=== PATIENT | female | born 1980 | race African-American/Black ===

== ENCOUNTER 2020-04-01 05:50 | Inpatient (IN) | payer OTHER ==
[2020-03-31 12:25] LABS: BASOPHILS % (AUTO) 2.9 % (0.0-2.0); EOSINOPHILS % (AUTO) 1.6 % (0.0-3.0); HEMATOCRIT 38.5 % (37.0-47.0); HEMOGLOBIN 13.2 G/DL (12.0-16.0); LYMPHOCYTES % (AUTO) 13.7 % (20.0-45.0); MEAN CORPUSCULAR VOLUME 89 FL (80-99); MONOCYTES % (AUTO) 5.4 % (1.0-10.0); NEUTROPHILS % (AUTO) 76.4 % (45.0-75.0); PLATELET COUNT 292 K/UL (150-450); RED BLOOD COUNT 4.33 M/UL (4.20-5.40); RED CELL DISTRIBUTION WIDTH 10.6 % (11.6-14.8); WHITE BLOOD COUNT 13.7 K/UL (4.8-10.8)
[2020-03-31 12:35] LABS: INR 1.3 (0.9-1.1)
[2020-03-31 12:37] LABS: ANION GAP 9 mmol/L (5-15); BLOOD UREA NITROGEN 8 mg/dL (7-18); CALCIUM 9.7 MG/DL (8.5-10.1); CARBON DIOXIDE 30 MMOL/L (21-32); CHLORIDE 99 MMOL/L (98-107); SODIUM 138 MMOL/L (136-145)
[2020-04-01] VITALS (12 sets, daily range): BP systolic 92–124; BP diastolic 57–91
[~2020-04-01] VITALS: Ht 162.6 cm; Wt 66.0 kg
[~2020-04-01 05:50] MED LIST: NORCO 5-325 TA1 EAC1 ORAL
[2020-04-01] MEDS ORDERED: ceFAZolin sod 2 GM in NS 55 ML IVPB ONE (07:00)
[2020-04-01] MEDS ORDERED: Midazolam 2mg/2ml Inj ONE (07:07)
[2020-04-01] MEDS ORDERED: fentaNYL 100 mcg/2 mL IV ONE (07:07)
[2020-04-01] MEDS ORDERED: Lidocaine 1% MPF 10mg/ml 5ml ONE (07:08)
[2020-04-01] MEDS ORDERED: cefOXitin 1gm Inj ONE (07:14)
[2020-04-01] MEDS ORDERED: Succinylcholine 20mg/ml 10ml vial ONE (07:15)
[2020-04-01] MEDS ORDERED: Duramorph PF 5mg/10ml amp ONE (07:15)
[2020-04-01] MEDS ORDERED: Rocuronium Bromide 50mg/5ml Inj IV ONE (07:15)
[2020-04-01] MEDS ORDERED: Sterile Water Irrig 1000ml IRRIG ONE (07:20)
[2020-04-01] MEDS ORDERED: LR 1000ml ONE (07:20)
[2020-04-01] MEDS ORDERED: Bupivacaine 0.5% Inj 30 ml vial INJ ONE (07:21)
[2020-04-01] MEDS ORDERED: Ropivacaine 5mg/ml Vial 20ml INJ ONE (07:21)
--- NOTE | 2020-04-01 07:31 | Pre-Procedure Note/Attestation ---
Pre-Procedure Note/Attestation Complete Prior to Procedure Planned Procedure: not applicable Procedure Narrative: myomectomy, possibly hysterectomy, exploratory laparotomy Indications for Procedure Pre-Operative Diagnosis: degenerating fibroid, lower abdominal pain Attestation I attest that I discussed the nature of the procedure; its benefits; risks and complications; and alternatives (and the risks and benefits of such alternatives ), prior to the procedure, with the patient (or the patient's legal footwear sales representative). I attest that, if there was a reasonable possibility of needing a blood transfusion, the patient (or the patient's legal footwear sales representative) was given the [facility] standardized written summary, pursuant to the Alden Fabens Blood Safety Act ([place] Health and Safety Code # 1645, as amended). I attest that I re-evaluated the patient just prior to the surgery and that there has been no change in the patient's H&P, except as documented below: Sheree Zuleta MD Apr 01, 2020 07:31
[2020-04-01] MEDS ORDERED: NS 55ml IV ONE (07:40)
[2020-04-01] MEDS ORDERED: NS Irrig 1000ml IRRIG ONE ×2 (07:40→09:50)
[2020-04-01] MEDS ORDERED: HYDROcodone/Acetamin 10/325 tab ORAL PRN (07:45)
[2020-04-01] MEDS ORDERED: Milk of Magnesia 30ml Ud ORAL PRN (07:45)
[2020-04-01] MEDS ORDERED: Sennosides 8.6mg tab ORAL PRN (07:45)
[2020-04-01] MEDS ORDERED: DiphenhydrAMINE 50mg/ml Inj IVP PRN ×2 (07:45→08:45)
[2020-04-01] MEDS ORDERED: HYDROcodone/Acetamin 5/325 tab ORAL PRN (07:45)
--- NOTE | 2020-04-01 08:35 | Anethesia Preoperative Eval ---
Anesthesia Pre-op PMH/ROS General Date of Evaluation: Apr 01, 2020 Time of Evaluation: 07:25 Anesthesiologist: Elida ASA Score: ASA 2 Mallampati Score Class I : Soft palate, uvula, fauces, pillars visible Class II: Soft palate, uvula, fauces visible Class III: Soft palate, base of uvula visible Class IV: Only hard plate visible Mallampati Classification: Class II Surgeon: Merlyn Diagnosis: Symptomatic uterine fibroids Surgical Procedure: Myomectomy Anesthesia History: none Family History: no anesthesia problems Allergies: Coded Allergies: No Known Allergies (Unverified , 03/31/20) Medications: see eMAR Patient NPO?: Yes Past Medical History Cardiovascular: Denies: HTN, CAD, [place], valve dz, arrhythmia, other Pulmonary: Denies: asthma, COPD, ROSA ISELA, other Gastrointestinal/Genitourinary: Reports: GERD - mild; Denies: CRI, ESRD, other Neurologic/Psychiatric: Reports: depression/anxiety, other - chronic pain; Denies: dementia, CVA, TIA Endocrine: Denies: DM, hypothyroidism, steroids, other HEENT: Denies: cataract (L), cataract (R), glaucoma, HUGHES (L), HUGHES (R), other Hematology/Immune: Reports: anemia - mild; Denies: DVT, bleeding disorder, other Musculoskeletal/Integumentary: Denies: OA, RA, DJD, DDD, edema, other PMH Narrative: as above PSxH Narrative: Excisional Bx breast Anesthesia Pre-op Phys. Exam Physician Exam Last Vital Signs Date Time Temp Pulse Resp B/P (MAP) Pulse Ox O2 Delivery O2 Flow Rate FiO2 04/01/20 06:45 Room Air 04/01/20 06:40 98.7 89 18 124/91 (102) 99 Constitutional: NAD Neurologic: CN 2-12 intact Cardiovascular: RRR, no M/R/G Respiratory: CTA Gastrointestinal: S/NT/ND Airway Exam Mallampati Score: Class II MO: full Neck: flexible ROM: full Teeth: intact Dentures: no upper, no lower Anesthesia Pre-op A/P Labs Hematology Test 03/31/20 12:19 White Blood Count 13.7 K/UL (4.8-10.8) H Red Blood Count 4.33 M/UL (4.20-5.40) Hemoglobin 13.2 G/DL (12.0-16.0) Hematocrit 38.5 % (37.0-47.0) Mean Corpuscular Volume 89 FL (80-99) Mean Corpuscular Hemoglobin 30.6 PG (27.0-31.0) Mean Corpuscular Hemoglobin Concent 34.4 G/DL (32.0-36.0) Red Cell Distribution Width 10.6 % (11.6-14.8) L Platelet Count 292 K/UL (150-450) Mean Platelet Volume 7.8 FL (6.5-10.1) Neutrophils (%) (Auto) 76.4 % (45.0-75.0) H Lymphocytes (%) (Auto) 13.7 % (20.0-45.0) L Monocytes (%) (Auto) 5.4 % (1.0-10.0) Eosinophils (%) (Auto) 1.6 % (0.0-3.0) Basophils (%) (Auto) 2.9 % (0.0-2.0) H Coagulation Test 03/31/20 12:19 Prothrombin Time 13.6 SEC (9.30-11.50) H Prothromb Time International Ratio 1.3 (0.9-1.1) H Activated Partial Thromboplast Time 28 SEC (23-33) Chemistry Test 03/31/20 12:19 04/01/20 06:20 Sodium Level 138 MMOL/L (136-145) Potassium Level 4.0 MMOL/L (3.5-5.1) Chloride Level 99 MMOL/L (98-107) Carbon Dioxide Level 30 MMOL/L (21-32) Anion Gap 9 mmol/L (5-15) Blood Urea Nitrogen 8 mg/dL (7-18) Creatinine 1.0 MG/DL (0.55-1.30) Estimat Glomerular Filtration Rate > 60 mL/min (>60) Glucose Level 109 MG/DL (74-106) H Calcium Level 9.7 MG/DL (8.5-10.1) Human Chorionic Gonadotropin, Qual Negative (NEGATIVE) Serum Test Test 04/01/20 06:20 Human Chorionic Gonadotropin, Qual Negative (NEGATIVE) Studies Pre-op Studies: EKG - NSR Risk Assessment & Plan Assessment: ASA 2 Plan: GA with ETT intrathecal MS for postop pain control Status Change Before Surgery: No Pre-Antibiotics Drug: Cefoxitin 1gr Given Within 1 Hr of Incision: Yes Time Given: 08:15 Viraj Marrero MD Apr 01, 2020 08:35
[2020-04-01] MEDS ORDERED: LR 1000ml 1,000 ML IVLG SCH (08:37)
[2020-04-01] MEDS ORDERED: Glycopyrrolate 0.2mg/ml 1ml Vial ONE (08:42)
[2020-04-01] MEDS ORDERED: Meperidine 25mg/0.5ml Inj (FOR RIGORS ONLY) IV PRN (08:45)
[2020-04-01] MEDS ORDERED: Acetaminophen (Non formulary) 100 ML IV ONE (08:45)
[2020-04-01] MEDS ORDERED: Midazolam 2mg/2ml Inj IVP PRN (08:45)
[2020-04-01] MEDS ORDERED: Metoclopramide 10mg/2ml Inj IVP PRN (08:45)
--- NOTE | 2020-04-01 08:45 | Pre-op HX & Phy Repo 2 SIG ---
DATE OF ADMISSION: 04/01/2020 REASON FOR ADMISSION: admitted for myomectomy. HISTORY OF PRESENT ILLNESS: The patient has been followed by me on and off since 2006. In 2018, she was diagnosed with a small intramural fibroid approximately 1.5 cm in diameter at that point. She was seen iin September 2019, at which point a 6 cm fibroid was observed and another smaller fibroid. At that point, surgery was discussed; however, the patient was not symptomatic and only had mild urinary retention and she chose to be observed expectantly. Next, she was seen in December 2019 with an 8 cm anterior fibroid and worsening retention. A decision was made that she will see an urologist for urometrics and then we will plan surgery at some point in the future. In March 2020, namely March 29, 2020, Luz Maria had constipation and lower abdominal pain and she went to emergency room where the fibroid was observed to be 8 cm and with some hypoechoic, heterogeneous areas and diagnosis was made of degenerating fibroid versus abscess. However, the patient had no fever or chills and no nausea or vomiting. She only had constipation and pain. I saw her on 03/30/2020 for and exam. The exam was consistent with a degenerating fibroid that was tender on exam. A decision was made to proceed with expedited surgery. The patient was extensively counseled and we discussed the possibility that a hysterectomy will be necessary. I think the patient does desire future fertility and I will try to do a myomectomy. We also discussed that secondary to rapid growth of fibroid, sarcoma is not ruled out. So, the decision was made with the patient's consent to proceed with exploratory laparotomy, myomectomy, possible hysterectomy. PAST MEDICAL HISTORY: None. PAST SURGICAL HISTORY: None. SOCIAL HISTORY: The patient drinks socially. She does not smoke and she lives with sister. REVIEW OF SYSTEMS: Significant for pain as well as constipation for the last 3 to 4 days and no abdominal pain. She denies heavy bleeding, nausea, vomiting, fever, or chills. PHYSICAL EXAMINATION: GENERAL: female, appearing stated age, in no acute distress. VITAL SIGNS: Weight 144. Blood pressure 120/80. Height 6 feet 5-1/2 inches. Heart rate 72. Afebrile. Temperature 98.7. Respiratory rate 18. HEAD AND NECK: Pupils are equal and reactive to light. LUNGS: Clear to auscultation bilaterally. BREASTS: No dominant masses. No axillary adenopathy. CARDIAC: Regular rate and rhythm. ABDOMEN: Soft, nondistended. Tender, right more than the left, also midline abdominopelvic mass approximately 6 cm above symphysis, tender to palpation. No rebound. No guarding. Normal bowel sounds. EXTREMITIES: No cords. No cyanosis. No edema. PELVIC: Bartholin, urethral, Grimsley's within normal limits. Bimanual exam significant for 14 week +, fibroid uterus, tender to palpation. No cervical motion tenderness. Cervix within normal limits. RECTAL/VAGINAL: Within normal limits. ASSESSMENT: A 39-year-old with a symptomatic fibroid uterus, one fibroid growing rapidly to approximately 8 to 9 cm in size . Other fibroids were seen as well, the pain is most likely secondary to degenerating fibroid. PLAN: Ex-lap, myomectomy, possible hysterectomy. Sheree Zuleta M.D. DR: COSME JOB#: [id number] CC: FITO
--- NOTE | 2020-04-01 10:59 | Immediate Post-Op Evaluation ---
Immediate Post-Op Evalulation Immediate Post-Op Evalulation Procedure: Open abdominal myomectomy Date of Evaluation: Apr 01, 2020 Time of Evaluation: 10:57 IV Fluids: 1600 Blood Products: none Estimated Blood Loss: 250 Urinary Output: 150 Blood Pressure Systolic: 118 Blood Pressure Diastolic: 67 Pulse Rate: 96 Respiratory Rate: 20 O2 Sat by Pulse Oximetry: 99 Temperature (Fahrenheit): 98.8 Pain Score (1-10): 1 Nausea: No Vomiting: No Complications none Patient Status: reacts, patent, extubated, none Hydration Status: adequate Viraj Marrero MD Apr 01, 2020 10:58
--- NOTE | 2020-04-01 11:14 | Brief Operative Note ---
Immediate Post Operative Note Operative Note Pre-op Diagnosis: degenerating fibroid, lower abdominal pain Procedure: exploratory laparotomy extensive myomectomy Post-op Diagnosis: degenerating fibroid Surgeon: ingrid Environmental Coordinator: brianne Anesthesiologist: nilam Anesthesia: general Specimen: yes Complications: none Condition: stable Fluids: 1.6l crystallloid Estimated Blood Loss: volume - 300cc Drains: none Implant(s) used?: No Sheree Zuleta MD Apr 01, 2020 11:14
--- NOTE | 2020-04-01 11:55 | NUR ---
NURSE NOTES: pt arrived to the floor via hospital bed , s/p surgery pt alert awake . Received report from Laurie mondragon. Pt a/o4, breaths regular unlabored on 3L NC, no s/s of distress , pt denies any pain , abd dressing clean intact , pt has a Bragg catheter draining clear yellow urine . PT has IVF on the LT hand 20 intact , patent asymptomatic . Pt has Bilateral SCDs on , belongings verified and signed for . oriented pt to the room , provided remote , call light with in reach , side rails up X2, pt encouraged to call for for help , will continue to Monitor
[2020-04-01] MEDS ORDERED: HYDROmorphone 1mg/ml Carpuject IVP PRN (12:32)
[2020-04-01] MEDS: Docusate 100mg cap ORAL SCH (17:25)
[2020-04-01] MEDS: ceFAZolin sod 1 GM in D5W 55 ML IV SCH (17:25)
[2020-04-01] MEDS: Ketorolac 30mg Inj IV SCH (17:25)
--- NOTE | 2020-04-01 19:30 | NUR ---
NURSE NOTES: Received patient and report from LASHELL Preston. Patient was alert and oriented x4 with no s/s of acute distress. No c/o pain. IV site clean dry and intact and running fluids as ordered. Surgical dressing clean dry and intact. Bragg noted and draining. Plan of care discussed.
[2020-04-02] VITALS: BP 108/67
[2020-04-02] MEDS: Ketorolac 30mg Inj IV SCH ×4 (00:12→21:45)
[2020-04-02] MEDS: ceFAZolin sod 1 GM in D5W 55 ML IV SCH (00:12)
--- NOTE | 2020-04-02 01:15 | Operative Note - Dictated ---
DATE OF OPERATION: 04/01/2020 PREOPERATIVE DIAGNOSIS: Degenerating fibroid, lower abdominal pain. POSTOPERATIVE DIAGNOSIS: Degenerating fibroid, lower abdominal pain. PROCEDURE: Exploratory laparotomy, myomectomy. SURGEON: Sheree Zuleta MD. INSTALLMENT LOAN COLLECTOR: Suzie Rojo MD. ANESTHESIOLOGIST: Viraj Marrero MD. ESTIMATED BLOOD LOSS: 300 mL. FLUIDS: 1.6L NS ANESTHESIA: General endotracheal. PROCEDURE IN DETAIL: After ensuring informed consent, the patient was taken to the operating room where general anesthesia was induced. The patient was sterilely prepped and draped. Bragg was placed. I was planning to place a uterine manipulator, however, because of involuntary diarrhea, a decision was made not to proceed with instrumenting the uterus. Vaginal prep was done and the patient was placed in a dorsal supine position. A low transverse incision made with a knife and carried down to the level of the fascia with the Bovie. Fascia was nicked in the midline and incision was extended laterally. Fascia was grasped with Jillian clamps and sharply dissected off of the underlying rectus muscles. Rectus muscles were parted in the midline. Peritoneum was identified and entered sharply. A large anterior fibroid was encountered. Both ovaries were normal. Left fallopian tube was dilated and c/w small-moderated hydrosalpinx. About 5 to 6units of dilute Pitressin were injected into the uterus with good blanching observed. Serosa was incised with the Bovie. Fibroid was grasped with Any clamps and both sharply and bluntly dissected off of the underlying uterine muscle. Because the fibroid was large, it was taken down sharply with a knife. There is evidence that degeneration occurred, the fibroid was very mushy and had a distinct odor of necrosis. As the fibroid was completely removed, it was noted that there was another right lateral fundal fibroid approximately 3 cm in diameter. It was removed through the same intrauterine incision. Then, uterus was closed with multiple layers with 0 Vicryl using a CTX needle because of the defect left by the large, approximately 10 cm fibroid. Once excellent hemostasis was assured, the uterus was completely closed. Pelvic cavity was irrigated. Peritoneum was closed with 2-0 Vicryl. Fascia was closed with 0 Vicryl. Subcutaneous tissue was closed with 3-0 plain and skin was closed with 3-0 Monocryl, and Steri-Strips were placed over the skin. At the end of the procedure, all instrument and lap counts were correct x3. The patient was taken to the recovery area, extubated, and in stable condition. Sheree Zuleta M.D. DR: Nicole JOB#: [id number] CC: FITO
[2020-04-02 04:00] VITALS: BP 94/63
[2020-04-02 06:42] LABS: EOSINOPHILS % (AUTO) 6.1 % (0.0-3.0); LYMPHOCYTES % (AUTO) 29.2 % (20.0-45.0); MEAN CORPUSCULAR VOLUME 90 FL (80-99); MONOCYTES % (AUTO) 7.1 % (1.0-10.0); NEUTROPHILS % (AUTO) 55.6 % (45.0-75.0); PLATELET COUNT 276 K/UL (150-450); RED BLOOD COUNT 3.57 M/UL (4.20-5.40); RED CELL DISTRIBUTION WIDTH 10.5 % (11.6-14.8); WHITE BLOOD COUNT 7.9 K/UL (4.8-10.8)
[2020-04-02 06:55] LABS: ANION GAP 7 mmol/L (5-15); BLOOD UREA NITROGEN 10 mg/dL (7-18); CALCIUM 9.1 MG/DL (8.5-10.1); CARBON DIOXIDE 29 MMOL/L (21-32); CHLORIDE 102 MMOL/L (98-107); SODIUM 138 MMOL/L (136-145)
--- NOTE | 2020-04-02 07:07 | NUR ---
NURSE HAND-OFF: Important Events on Shift: pain management Patient Status: stable Diet: regular Pending Orders: NA Pending Results/Labs:NA Pending MD notification:NA Latest Vital Signs: Temperature 98.3 , Pulse 74 , B/P 94 /63 , Respiratory Rate 16 , O2 SAT 98 , Room Air, O2 Flow Rate 3.0 . Vital Sign Comment: stable throughout shift Latest Humphreys Fall Score: 35 Fall Risk: Medium Risk Safety Measures: Call light , Bed Alarm Zone 1, Side Rails Side Rails x2, Bed position Low and Locked. Fall Precautions: Yellow Socks Patient Fall Education Report given to LASHELL Preston.
--- NOTE | 2020-04-02 07:34 | NUR ---
NURSE NOTES: Received report from Magi /Jonathan RN, rounds made pt sleeping with no s/s of respiratory distress , breaths regular unlabored on RA, bed in low locked position, side rails upX2 , call light with in reach , will continue with plan of care
[2020-04-02 08:00] VITALS: BP 98/62
[2020-04-02] MEDS: Docusate 100mg cap ORAL SCH ×2 (08:37→18:55)
--- NOTE | 2020-04-02 08:49 | NUR ---
CASE MANAGEMENT: INITIAL REVIEW 39YR OLD FEMALE FROM HOME HERE FOR PLANNED SURGERY CC:Lower abdominal pain SI:Degenerating fibroid 98.7 89 18 124/91 99% ON RA LABS DONE PRIOR TO ADMISSION AND SURGERY: 03/31/20 LAB WBC 13.7 PT/INR 13.6/1.3 IS:IN SURG NOW FOR 04/01/20 OPEN myomectomy, possibly hysterectomy, exploratory laparotomy IVF NS BOLUS X2 IV CEFAZOLIN X2 BAGS \: 3E MED SURG UNIT DCP: HOME WHEN STABLE PLAN: NPO ADVANCE DIET TOLERATED ENCOURAGE INCENTIVE SPIROMETER NEURO CHECKS PT EVAL AND THERAPY RECOMMENDATION DVT PROPHYLAXIS PAIN MANAGEMENT CASE MANAGEMENT: REVIEW 04/02/20 SI:S/P OPEN MYOMECTOMY PMHX: Degenerating fibroid 98.1 93 18 98/62 98% ON RA NO LABS THIS AM IS:IV CEFAZOLIN X2 BAGS IV TORADOL Q6HR/PRN COLASE PO BID \: 3E MED SURG UNIT DCP: HOME WHEN STABLE PLAN: ADVANCE DIET TOLERATED CONT ENCOURAGE INCENTIVE SPIROMETER NEURO CHECKS F/U PT EVAL AND THERAPY RECOMMENDATION DVT PROPHYLAXIS ENCOURAGE AMBULATION COMPLETE IV ABX
--- NOTE | 2020-04-02 09:17 | NUR ---
*-* INSURANCE *-* UPDATED CLINICALS AND REVIEWS HAVE BEEN FAXED TO: # [phone] FAX# [phone] REVIEWS/CLINICALS
--- NOTE | 2020-04-02 10:04 | General Surgery Progress Note ---
General Surgery-Progress Note Subjective Procedure Performed exploratory laparotomy extensive myomectomy Symptoms: worse, pain same, tolerating diet, passing flatus Objective Last 24 Hour Vital Signs Date Time Temp Pulse Resp B/P (MAP) Pulse Ox O2 Delivery O2 Flow Rate FiO2 04/02/20 09:00 Room Air 04/02/20 08:00 98.1 93 18 98/62 (74) 98 04/02/20 04:00 98.3 74 16 94/63 (73) 98 04/02/20 00:00 98.3 82 18 108/67 (81) 99 04/01/20 21:00 Room Air 04/01/20 21:00 98.5 82 17 92/57 (69) 99 04/01/20 16:00 97.8 72 18 112/63 (79) 100 04/01/20 12:25 98.2 83 16 107/69 (82) 99 04/01/20 12:20 Nasal Cannula 3.0 04/01/20 11:55 98.2 80 18 106/67 (80) 99 04/01/20 11:50 98.9 77 16 108/59 100 Nasal Cannula 3 04/01/20 11:35 80 22 116/68 100 Nasal Cannula 3 04/01/20 11:22 79 20 118/70 100 Nasal Cannula 3 04/01/20 11:12 82 16 117/65 100 Simple Mask 6 04/01/20 11:02 85 12 124/71 100 Simple Mask 6 04/01/20 10:58 96 20 99 04/01/20 10:57 94 14 120/69 100 Simple Mask 6 04/01/20 10:52 99.1 100 25 118/71 100 Simple Mask 6 I&O Intake and Output 04/01/20 04/02/20 19:00 07:00 Intake Total 2054 ml 500 ml Output Total 980 ml 680 ml Balance 1074 ml -180 ml Intake Oral 354 ml 500 ml IV Total 1700 ml Output Urine Total 730 ml 680 ml Estimated Blood Loss 250 ml Dressing: dry Wound: clean, dry, intact Drains: none Cardiovascular: RSR Respiratory: clear Abdomen: soft, distended - appropriate slight distension and tenderness, present bowel sounds Laboratory Tests Test 04/02/20 04:50 White Blood Count 7.9 K/UL (4.8-10.8) Red Blood Count 3.57 M/UL (4.20-5.40) L Hemoglobin 11.0 G/DL (12.0-16.0) L Hematocrit 32.0 % (37.0-47.0) L Mean Corpuscular Volume 90 FL (80-99) Mean Corpuscular Hemoglobin 30.7 PG (27.0-31.0) Mean Corpuscular Hemoglobin Concent 34.2 G/DL (32.0-36.0) Red Cell Distribution Width 10.5 % (11.6-14.8) L Platelet Count 276 K/UL (150-450) Mean Platelet Volume 6.5 FL (6.5-10.1) Neutrophils (%) (Auto) 55.6 % (45.0-75.0) Lymphocytes (%) (Auto) 29.2 % (20.0-45.0) Monocytes (%) (Auto) 7.1 % (1.0-10.0) Eosinophils (%) (Auto) 6.1 % (0.0-3.0) H Basophils (%) (Auto) 2.0 % (0.0-2.0) Sodium Level 138 MMOL/L (136-145) Potassium Level 4.0 MMOL/L (3.5-5.1) Chloride Level 102 MMOL/L (98-107) Carbon Dioxide Level 29 MMOL/L (21-32) Anion Gap 7 mmol/L (5-15) Blood Urea Nitrogen 10 mg/dL (7-18) Creatinine 1.0 MG/DL (0.55-1.30) Estimat Glomerular Filtration Rate > 60 mL/min (>60) Glucose Level 99 MG/DL (74-106) Calcium Level 9.1 MG/DL (8.5-10.1) Assessment Post-op Diagnosis degenerating fibroid doing well Additional Comments ambulate/ observe d/c in am tomorrow Sheree Zuleta MD Apr 02, 2020 10:04
[2020-04-02] MEDS ORDERED: 1/2NS w/KCl 20mEq 1000ml 1,000 ML IV SCH (11:00)
[2020-04-02 12:00] VITALS: BP 97/64
--- NOTE | 2020-04-02 13:49 | 48 Hour Post Anesthesia Eval ---
Post Anesthesia Evaluation Procedure: Open abdominal myomectomy Date of Evaluation: Apr 02, 2020 Time of Evaluation: 13:48 Blood Pressure Systolic: 104 0: 56 Pulse Rate: 72 Respiratory Rate: 20 Temperature (Fahrenheit): 97.6 O2 Sat by Pulse Oximetry: 98 Airway: patent Nausea: No Vomiting: No Pain Intensity: 2 Hydration Status: adequate Cardiopulmonary Status: stable Mental Status/LOC: patient returned to baseline Follow-up Care/Observations: n/a Post-Anesthesia Complications: none Follow-up care needed: N/A Viraj Marrero MD Apr 02, 2020 13:49
[2020-04-02 16:00] VITALS: BP 118/74
[2020-04-02] MEDS ORDERED: BACTRIM DS TAB1 EAC1 ORAL (17:54)
--- NOTE | 2020-04-02 19:18 | NUR ---
NURSE NOTES: Received report from anh LOBO. Rounding is done. Patient is a/o x4, c/o pain 03/01 and just given medication by Morning nurse. Will continue to monitor. Patient is hard stick for IV, and already 2 nurses tried,but failed. Breathing is even and unlabored. No any distress noted at this time. Bed is on alarm, locked, and lowest position. Call light within reach. Will continue to monitor.
--- NOTE | 2020-04-02 19:29 | NUR ---
NURSE HAND-OFF: Important Events on Shift: IV pain Meds not given due to lack of i.v access , endorsed to night auditor nurse to give pain Meds when i.v is established Patient Status: stable Diet: Regular Pending Orders: Pending Results/Labs: Pending MD notification: Latest Vital Signs: Temperature 97.9 , Pulse 73 , B/P 118 /74 , Respiratory Rate 16 , O2 SAT 100 , Room Air, O2 Flow Rate 3.0 . Vital Sign Comment: Latest Humphreys Fall Score: 35 Fall Risk: Medium Risk Safety Measures: Call light , Bed Alarm Zone 1, Side Rails Side Rails x2, Bed position Low and Locked. Fall Precautions: Yellow Socks Patient Fall Education Report given to LILY LOBO.
[2020-04-02 20:00] VITALS: BP 114/74
[2020-04-03] VITALS: BP 108/73
[2020-04-03] MEDS: Ketorolac 30mg Inj IV SCH ×2 (00:57→06:04)
[2020-04-03 04:00] VITALS: BP 124/75
--- NOTE | 2020-04-03 07:16 | NUR ---
NURSE HAND-OFF: Important Events on Shift:[pain control] Patient Status: [stable] Diet: [regular] Pending Orders: [none] Pending Results/Labs:[none] Pending MD notification:[none] Latest Vital Signs: Temperature 98.1 , Pulse 78 , B/P 124 /75 , Respiratory Rate 17 , O2 SAT 98 , Room Air, O2 Flow Rate 3.0 . Vital Sign Comment: [stable] Latest Humphreys Fall Score: 35 Fall Risk: Medium Risk Safety Measures: Call light , Bed Alarm Zone 1, Side Rails Side Rails x2, Bed position Low and Locked. Fall Precautions: Yellow Socks Patient Fall Education Report given to [MAKAYLA RN].
--- NOTE | 2020-04-03 07:23 | NUR ---
NURSE NOTES: Received pt from LASHELL Marie. pt was sleeping, no acute distress, call light w/in reach.
[2020-04-03 08:00] VITALS: BP 108/69
[2020-04-03] MEDS: Docusate 100mg cap ORAL SCH (08:41)
--- NOTE | 2020-04-03 10:06 | Discharge Instructions ---
Discharge Instructions Discharge Instructions Diet: regular Resume Normal Activity?: Yes Activity: light activity, okay to shower, other - pelvic rest and only showers and no lifting more then 10lbs For Congestive Heart Failure Reminder Report to your physician any weight gain of 5 pounds or more in one week. Sheree Zuleta MD Apr 03, 2020 10:06
--- NOTE | 2020-04-03 10:10 | General Surgery Progress Note ---
General Surgery-Progress Note Subjective Procedure Performed exploratory laparotomy extensive myomectomy Symptoms: improved, tolerating diet, voiding well, passing flatus Objective Last 24 Hour Vital Signs Date Time Temp Pulse Resp B/P (MAP) Pulse Ox O2 Delivery O2 Flow Rate FiO2 04/03/20 08:18 Room Air 04/03/20 08:00 97.9 86 17 108/69 (82) 99 04/03/20 04:00 98.1 78 17 124/75 (91) 98 04/03/20 00:00 98.2 80 18 108/73 (85) 99 04/02/20 21:00 Room Air 04/02/20 20:00 99.6 98 18 114/74 (87) 97 04/02/20 16:00 97.9 73 16 118/74 (89) 100 04/02/20 13:49 72 20 98 04/02/20 12:00 98.0 87 16 97/64 (75) 98 I&O Intake and Output 04/02/20 04/03/20 19:00 07:00 Intake Total 2100 ml 940 ml Output Total 1850 ml 1200 ml Balance 250 ml -260 ml Intake Oral 2100 ml 940 ml Output Urine Total 1850 ml 1200 ml # Voids 2 3 Dressing: dry Wound: clean, dry, intact Drains: none Cardiovascular: RSR Respiratory: clear Abdomen: soft, distended, present bowel sounds Extremities: no edema Assessment Post-op Diagnosis degenerating fibroid doing well Plan Additional Comments d/c home follow up on sunday meds: ibuprofen and norco Sheree Zuleta MD Apr 03, 2020 10:10
--- NOTE | 2020-04-03 11:21 | NUR ---
NURSE NOTES: discharge the pt with stable condition. surgical site on lower abd was with steri strip. clean and dry, abdominal binder was applied by pt's request. pt verbalized understanding all d/c instruction
[2020-04-03] MEDS ORDERED: Tubing IV Secondary IV ONE (12:25)
[2020-04-03] MEDS ORDERED: NS 275ml ONE (12:25)
--- NOTE | 2020-04-05 11:01 | NUR ---
INSURANCE D/C DATE/ CLINICALS SENT TO [facility] [phone]
--- NOTE | 2020-04-05 12:41 | Discharge Summary ---
Discharge Summary Hospital Course Date of Admission Apr 01, 2020 at 05:50 Date of Discharge Apr 03, 2020 at 12:26 Admitting Diagnosis Degenerative uterine fibroid, lower abdominal pain. Reason for Hospitalization: Elective surgery HPI Luz Maria Nevarez is a 39 year old female who was admitted on Apr 01, 2020 at 05:50 for Uterine Fibroids. Patient was admitted for elective surgery. Procedures s/p 03/01/[address] Zuleta Exploratory laparotomy, myomectomy. Hospital Course status post surgery course of recovery uneventful initially IV fluids s/p perioperative antibiotics neurovascular status closely monitored, stable pain management addressed ; pain controlled remained hemodynamically stable incision clean , dry and intact use of incentive spirometry was encouraged while in the bed tolerated diet , IV fluids discontinued voided freely passed flatus bowel regimen instituted patient was stable for discharge discharge instructions and prescriptions provided follow up with surgeon in the office as scheduled FINAL DIAGNOSES Degenerating uterine fibroids Lower abdominal pain Status post exploratory laparotomy and myomectomy Discharge Condition Upon Discharge: stable Discharge Vital Signs Last Vital Signs Date Time Temp Pulse Resp B/P (MAP) Pulse Ox O2 Delivery O2 Flow Rate FiO2 04/03/20 08:18 Room Air 04/03/20 08:00 97.9 86 17 108/69 (82) 99 04/01/20 12:20 3.0 Discharge Disposition Patient was discharged home Discharge Instructions Discharge Instructions Activity: light activity, okay to shower, other - pelvic rest and only showers and no lifting more then 10lbs Special Instructions I have been assigned to complete a D/C Summary on this account. I was not involved in the patient management Ava Pham NP Apr 05, 2020 12:41
--- NOTE | 2020-04-06 09:35 | CDS Physician Query ---
PLEASE COMPLETE DOCUMENT BEFORE SIGNING Dear Dr. Sheree Zuleta M.D, Date: 04/06/2020 CDI/CDS Name: Jose Angel Benjamin Clinical Documentation Statement: "39-year-old with a symptomatic fibroid uterus , one fibroid growing rapidly to approximately 8 to 9 cm in size . Other fibroids were seen as well, the pain is most likely secondary to degenerating fibroid. PLAN: Ex-lap, myomectomy, possible hysterectomy. Clinical Finding Show: Vitals (03/31): T98.7F, Pulse 100, RR 25 LAB (03/31) : Hemat; WBC 13.7, Neut% 76.4 Chem: Glucose 109 Medication: Acetaminophen PO, Cefazolin IV According to the clinical indications above, please indicate below the condition [] SIRS (Systemic Inflammatory Response Syndrome) [] SIRS w/ Organ Dysfunction [] Sepsis [] Sepsis w/ Organ Dysfunction [] Septic Shock [] Not Applicable [] Other Condition Present on Admission: [] Yes [] No []Clinically Undeterminable Please also document in your Progress Notes and/or Discharge Summary and indicate if the condition was present on admission. MTDD
== END 2020-04-03 12:26 | disposition home or self-care (01) | DRG 743 ==
LOC: SDSOVERFLO 05:50 → 3E 12:27
PROC: 0UB90ZZ Excision of Uterus, Open Approach (ICD-10-PCS; principal; 2020-04-01 07:30)
DX: D25.9 Leiomyoma of uterus, unspecified (principal); R10.30 Lower abdominal pain, unspecified
CPT/HCPCS: 36415; 80048; 84703; 85025; 85610; 85730; 86850; 86900; 86901; 86920; 87081; 94003; 94150; J2250; J2405; J2795; U0002